=== PATIENT | female | born 1985 | race Caucasian/White ===

== ENCOUNTER 2019-09-05 03:11 | Inpatient (IN) ==
[~2019-09-05 03:11] MED LIST: Famotidine 20 MG/2 ML VIAL IVP PRN; Metoclopramide 10 MG/2 ML VIAL IVP PRN; Naloxone 0.4 MG/ML INJ IVP PRN
[2019-09-05] MEDS ORDERED: Ringers Solution, Lactated 1,000 ML IVC SCH (03:15)
[2019-09-05] MEDS ORDERED: Oxytocin 20 units/ LR 1000 mL 20 UNIT/1,000 ML BAG IVC ONE ×2 (03:15→04:15)
[2019-09-05 03:32] LABS: Basophils # 0.1 K/mcL (0.0-0.2); Basophils % 0.5 %; Eosinophils # 0.2 K/mcL (0.0-0.6); Eosinophils % 1.9 %; Hematocrit 38.2 % (35.3-44.9); Hemoglobin 12.9 g/dL (11.5-15.4); Immature Granulocytes % 1.2 % (0-4); Lymphocytes # 2.3 K/mcL (0.6-4.6); Lymphocytes % 19.2 %; Mean Corpuscular HGB Conc 33.8 g/dL (31.6-35.5); Mean Corpuscular Hemoglobin 30.8 pg (28.0-33.3); Mean Corpuscular Volume 91.2 fL (83.0-100.0); Mean Platelet Volume 10.7 fL (9.4-12.4); Monocytes # 0.8 K/mcL (0.0-1.3); Monocytes % 6.7 %; Neutrophils # 8.5 K/mcL (1.6-8.9); Platelet Count 266 K/mcL (140-400); Red Blood Count 4.19 M/mcL (3.82-4.97); Red Cell Distribution Width 13.1 % (11.5-14.5); Segmented Neutrophils % 70.5 %
[2019-09-05] MEDS ORDERED: Lidocaine 1% 20 ML MDV ONE (04:22)
[2019-09-05] MEDS ORDERED: Measles/Mumps/Rubella Vacc 0.5 ML VIAL SQ PRN (08:20)
[2019-09-05] MEDS ORDERED: *HR* HYDROcodone/Acet 5/325 mg TABLET PO PRN (08:20)
[2019-09-05] MEDS ORDERED: Benzocaine/Menthol 56 GM AEROSOL SPRAY TP PRN (08:20)
[2019-09-05] MEDS ORDERED: Lanolin 7 G OINT...G. TP PRN (08:20)
[2019-09-05] MEDS ORDERED: Oxytocin 20 units/ LR 1000 mL 20 UNIT/1,000 ML BAG IVC SCH (08:20)
[2019-09-05] MEDS ORDERED: Rho Immune Globulin 1,500 UNIT SYRINGE IM PRN (08:20)
[2019-09-05] MEDS: valACYclovir 500 MG TABLET PO SCH (08:51)
[2019-09-05] MEDS: Acetaminophen 325 MG TABLET PO PRN (08:51)
[2019-09-05] MEDS: Prenatal Vit/FA 1 EACH TABLET PO SCH (08:51)
[2019-09-05] MEDS: Ibuprofen 600 MG TABLET PO PRN (16:27)
[2019-09-06] MEDS: Ibuprofen 600 MG TABLET PO PRN ×2 (03:42→20:44)
[2019-09-06 04:06] LABS: Basophils # 0.1 K/mcL (0.0-0.2); Basophils % 0.4 %; Eosinophils # 0.2 K/mcL (0.0-0.6); Eosinophils % 1.6 %; Hematocrit 33.3 % (35.3-44.9); Immature Granulocytes % 1.3 % (0-4); Lymphocytes % 17.6 %; Mean Corpuscular HGB Conc 32.7 g/dL (31.6-35.5); Mean Corpuscular Hemoglobin 29.9 pg (28.0-33.3); Mean Corpuscular Volume 91.5 fL (83.0-100.0); Mean Platelet Volume 10.8 fL (9.4-12.4); Monocytes # 0.6 K/mcL (0.0-1.3); Monocytes % 4.8 %; Neutrophils # 8.6 K/mcL (1.6-8.9); Platelet Count 208 K/mcL (140-400); Red Blood Count 3.64 M/mcL (3.82-4.97); Red Cell Distribution Width 13.1 % (11.5-14.5); Segmented Neutrophils % 74.3 %; White Blood Count 11.6 K/mcL (4.3-11.1)
[2019-09-06 04:07] LABS: Hemoglobin 10.9 g/dL (11.5-15.4)
[2019-09-06] MEDS: Prenatal Vit/FA 1 EACH TABLET PO SCH (07:43)
[2019-09-06] MEDS: Acetaminophen 325 MG TABLET PO PRN (07:43)
[2019-09-06] MEDS: valACYclovir 500 MG TABLET PO SCH (07:43)
[2019-09-07 07:43] VITALS: BP 136/93
[2019-09-07] MEDS: Prenatal Vit/FA 1 EACH TABLET PO SCH (08:22)
[2019-09-07] MEDS: Ibuprofen 600 MG TABLET PO PRN (08:22)
[2019-09-07] MEDS: valACYclovir 500 MG TABLET PO SCH (08:23)
== END 2019-09-07 13:43 | disposition home or self-care (01) | DRG 806 ==
LOC: 1NENULAB → 1NENUOBS 08:00
PROVIDERS: ADMIT Student in an Organized Health Care Education/Training Program; ATTEND Student in an Organized Health Care Education/Training Program